=== PATIENT | female | born 1995 | race Caucasian/White ===

== ENCOUNTER 2017-08-12 13:16 | Emergency (ER) | payer OTHER ==
[~2017-08-12] VITALS: Ht 165.1 cm; Wt 55.0 kg
[2017-08-12 13:30] VITALS: BP 104/63
[2017-08-12] MEDS ORDERED: SODIUM CHLORIDE FLUSH 10ML SYR IVF ONE (13:30)
[2017-08-12] MEDS ORDERED: SODIUM CHLORIDE 0.9% 1,000ML IVBOLUS ONE (13:30)
[2017-08-12] MEDS ORDERED: PLEASE ENTER ALLERGIES MC SCH ×2 (14:00)
== END 2017-08-12 14:17 | disposition home or self-care (01) ==
LOC: ED 14:11
DX: R53.1 Weakness (principal); Z59.0 Homelessness
CPT/HCPCS: 96360; 99284; J7030